=== PATIENT | male | born 1980 | race Caucasian/White ===

== ENCOUNTER 2019-10-03 22:18 | Emergency (ER) | payer SELFPAY ==
[~2019-10-03] VITALS: Ht 182.9 cm; Wt 100.0 kg
[~2019-10-03 22:18] MED LIST: ALLERGY EYE D0.025 % OP; TYLENOL325 MG OR
[2019-10-03 23:38] LABS: HEMATOCRIT 38.5 % (39.0-50.0); IMMATURE GRANULOCYTES 0.3 % (0.0-5.0); MEAN CELL VOLUME 92.3 fL CALC (80.0-100.0); MEAN CORPUSCULAR HGB 30.9 pG CALC (26.0-32.0); MEAN CORPUSCULAR HGB CONC 33.5 g/L CALC (32.0-36.0); NEUT# 8.62 thou/uL (1.82-7.42); RED BLOOD COUNT 4.17 mill/uL (4.70-6.10); RED CELL DISTRI WIDTH 12.2 % (11.5-15.5)
[2019-10-03 23:39] LABS: HEMOGLOBIN 12.9 g/dl (14.0-18.0)
[2019-10-03 23:57] LABS: ANION GAP 11 (6-22 (CALC)); BUN 17 mg/dL (9-20); BUN/CREATININE RATIO 20 (12-20 (CALC)); CARBON DIOXIDE 29 mmol/l (22-30); CHLORIDE 100 mmol/l (95-108); CREATININE 0.9 mg/dL (0.7-1.3); GFR > 60 ML/MIN (>=60 (CALC)); GFR FOR AFR.AMER. > 60 ML/MIN (>=60 (CALC)); SODIUM 137 mmol/l (137-146)
[2019-10-04] LABS: POTASSIUM 3.4 mmol/l (3.5-5.1)
[2019-10-04 01:40] VITALS: BP 134/74
== END 2019-10-04 01:40 | DRG 603 ==
LOC: ED 22:18
PROVIDERS: Emergency Medicine
DX: L02.512 Cutaneous abscess of left hand (principal); M65.842 Other synovitis and tenosynovitis, left hand

== ENCOUNTER 2022-10-11 20:01 | Emergency (ER) | payer OTHER ==
[2022-10-11] VITALS (10 sets, daily range): BP systolic 94–122; BP diastolic 58–92
[~2022-10-11] VITALS: Ht 182.9 cm; Wt 95.6 kg
[2022-10-11 22:16] LABS: HEMATOCRIT 41.9 % (39.0-50.0); HEMOGLOBIN 14.6 g/dl (14.0-18.0); IMMATURE GRANULOCYTES 0.5 % (0.0-5.0); MEAN CELL VOLUME 87.5 fL CALC (80.0-100.0); MEAN CORPUSCULAR HGB 30.5 pG CALC (26.0-32.0); MEAN CORPUSCULAR HGB CONC 34.8 g/dL CAL (32.0-36.0); NEUT# 14.91 thou/uL (1.82-7.42); RED BLOOD COUNT 4.79 mill/uL (4.70-6.10); RED CELL DISTRI WIDTH 12.9 % (11.5-15.5)
[2022-10-11 22:25] LABS: ALBUMIN 4.2 g/dL (3.2-5.0); ANION GAP 19 (6-22 (CALC)); BUN 19 mg/dL (9-20); BUN/CREATININE RATIO 18 (12-20 (CALC)); CARBON DIOXIDE 24 mmol/l (22-30); CHLORIDE 95 mmol/l (95-108); CREATININE 1.1 mg/dL (0.7-1.3); GFR FOR AFR.AMER. > 60 ML/MIN (>=60 (CALC)); GFR OTHER RACES > 60 ML/MIN (>=60 (CALC)); LIPASE 36 u/l (23-300); POTASSIUM 3.9 mmol/l (3.5-5.1); SGOT/AST 29 u/l (17-59); SODIUM 133 mmol/l (137-146); TOTAL PROTEIN 7.9 g/dL (6.3-8.2)
[2022-10-11 22:26] LABS: ALKALINE PHOSPHATASE 152 u/l (38-126); BILIRUBIN, TOTAL 0.6 mg/dL (0.0-1.4)
[2022-10-11 23:08] LABS: URINE BLOOD DIPSTICK LARGE (NEGATIVE); URINE COLOR YELLOW; URINE GLUCOSE - DIPSTICK NEGATIVE (NEGATIVE); URINE KETONE 40 mg/dL (NEGATIVE); URINE PROTEIN - DIPSTICK >=300 mg/dL (NEG-TRACE); URINE SPECIFIC GRAVITY 1.025
[2022-10-11 23:11] LABS: URINE BILIRUBIN - DIPSTICK MODERATE (NEGATIVE); URINE LEUK ESTERASE MODERATE (NEGATIVE); URINE NITRITE - DIPSTICK NEGATIVE (Negative)
[2022-10-11 23:31] LABS: URINE BACTERIA MANY hpf; URINE SQUAMOUS EPITHELIAL CELL FEW EPI/hpf (0-FEW); URINE WBC 50-100 WBC/hpf (0-5)
[2022-10-11] MEDS ORDERED: DICYCLOMINE10 MG PO (23:44)
[2022-10-11] MEDS ORDERED: CIPROFLOXACN500 MG PO (23:44)
[2022-10-12 00:30] VITALS: BP 103/69
[2022-10-12 00:45] VITALS: BP 114/85
[2022-10-12 01:00] VITALS: BP 100/69
[2022-10-12 01:36] VITALS: BP 100/69
== END 2022-10-12 01:36 | disposition home or self-care (01) | DRG 690 ==
LOC: ED 20:01
PROVIDERS: Family Medicine
DX: N39.0 Urinary tract infection, site not specified (principal); R10.9 Unspecified abdominal pain

== ENCOUNTER 2022-11-12 14:48 | Emergency (ER) | payer SELFPAY ==
[~2022-11-12] VITALS: Ht 182.9 cm; Wt 104.0 kg
[2022-11-12] VITALS (12 sets, daily range): BP systolic 99–116; BP diastolic 65–73
[~2022-11-12 14:48] MED LIST changes: +CIPROFLOXACN500 MG PO; +DICYCLOMINE10 MG PO
[2022-11-12] MEDS ORDERED: CIPROFLOXACN500 MG PO (19:02)
== END 2022-11-12 19:13 | disposition home or self-care (01) | DRG 728 ==
LOC: ED 14:48
DX: N45.1 Epididymitis (principal)

== ENCOUNTER 2023-04-23 16:37 | Observation (INO) | payer SELFPAY ==
[2023-04-23] VITALS (14 sets, daily range): BP systolic 105–131; BP diastolic 65–85
[~2023-04-23] VITALS: Ht 182.9 cm; Wt 96.0 kg
[2023-04-23 17:08] LABS: GFR FOR AFR.AMER. > 60 ML/MIN (>=60 (CALC)); GFR OTHER RACES > 60 ML/MIN (>=60 (CALC))
[2023-04-23 17:10] LABS: BASO% 0.5 % (0-3); EOS% 0.9 % (0-8); HEMATOCRIT 44.4 % (39.0-50.0); HEMOGLOBIN 14.9 g/dl (14.0-18.0); IMMATURE GRANULOCYTES 0.5 % (0.0-5.0); LYMPH% 13.8 % (15-41); MEAN CELL VOLUME 88.6 fL CALC (80.0-100.0); MEAN CORPUSCULAR HGB 29.7 pG CALC (26.0-32.0); MEAN CORPUSCULAR HGB CONC 33.6 g/dL CAL (32.0-36.0); MONO% 4.2 % (2-13); NEUT# 12.34 thou/uL (1.82-7.42); NEUT% 80.1 % (42-76); RED BLOOD COUNT 5.01 mill/uL (4.70-6.10); RED CELL DISTRI WIDTH 12.5 % (11.5-15.5)
[2023-04-23 17:38] LABS: ALBUMIN 4.5 g/dL (3.2-5.0); ALKALINE PHOSPHATASE 130 u/l (38-126); ANION GAP 18 (6-22 (CALC)); BILIRUBIN, TOTAL 0.5 mg/dL (0.2-1.3); BUN 16 mg/dL (9-20); BUN/CREATININE RATIO 20 (12-20 (CALC)); CARBON DIOXIDE 24 mmol/l (22-30); CHLORIDE 101 mmol/l (95-108); CREATININE 0.8 mg/dL (0.7-1.3); GFR FOR AFR.AMER. > 60 ML/MIN (>=60 (CALC)); GFR OTHER RACES > 60 ML/MIN (>=60 (CALC)); POTASSIUM 5.1 mmol/l (3.5-5.1); SGOT/AST 54 u/l (17-59); SODIUM 138 mmol/l (137-146); TOTAL PROTEIN 7.9 g/dL (6.3-8.2)
[2023-04-24] VITALS (21 sets, daily range): BP systolic 91–131; BP diastolic 51–83
[2023-04-24 05:42] LABS: BASO% 0.4 % (0-3); EOS% 2.4 % (0-8); HEMATOCRIT 39.2 % (39.0-50.0); IMMATURE GRANULOCYTES 0.7 % (0.0-5.0); LYMPH% 24.2 % (15-41); MEAN CELL VOLUME 89.7 fL CALC (80.0-100.0); MEAN CORPUSCULAR HGB 29.3 pG CALC (26.0-32.0); MEAN CORPUSCULAR HGB CONC 32.7 g/dL CAL (32.0-36.0); MONO% 5.3 % (2-13); NEUT# 6.42 thou/uL (1.82-7.42); RED BLOOD COUNT 4.37 mill/uL (4.70-6.10); RED CELL DISTRI WIDTH 12.5 % (11.5-15.5)
[2023-04-24 05:46] LABS: HEMOGLOBIN 12.8 g/dl (14.0-18.0)
[2023-04-24 05:59] LABS: ALKALINE PHOSPHATASE 103 u/l (38-126); ANION GAP 14 (6-22 (CALC)); BUN 15 mg/dL (9-20); BUN/CREATININE RATIO 18 (12-20 (CALC)); CARBON DIOXIDE 23 mmol/l (22-30); CHLORIDE 106 mmol/l (95-108); CREATININE 0.8 mg/dL (0.7-1.3); GFR FOR AFR.AMER. > 60 ML/MIN (>=60 (CALC)); GFR OTHER RACES > 60 ML/MIN (>=60 (CALC)); POTASSIUM 4.9 mmol/l (3.5-5.1); SGOT/AST 43 u/l (17-59); SODIUM 138 mmol/l (137-146); TOTAL PROTEIN 6.6 g/dL (6.3-8.2)
[2023-04-24 06:04] LABS: ALBUMIN 3.4 g/dL (3.2-5.0); BILIRUBIN, TOTAL 0.2 mg/dL (0.2-1.3)
[2023-04-25] VITALS: BP 111/69
[2023-04-25 02:00] VITALS: BP 101/63
[2023-04-25 04:01] VITALS: BP 131/87
[2023-04-25 06:00] VITALS: BP 108/71
[2023-04-25 06:13] LABS: BASO% 0.7 % (0-3); EOS% 3.9 % (0-8); HEMATOCRIT 39.2 % (39.0-50.0); HEMOGLOBIN 12.6 g/dl (14.0-18.0); IMMATURE GRANULOCYTES 1.4 % (0.0-5.0); LYMPH% 32.9 % (15-41); MEAN CORPUSCULAR HGB 29.2 pG CALC (26.0-32.0); MEAN CORPUSCULAR HGB CONC 32.1 g/dL CAL (32.0-36.0); MONO% 5.2 % (2-13); NEUT# 5.03 thou/uL (1.82-7.42); NEUT% 55.9 % (42-76); RED BLOOD COUNT 4.31 mill/uL (4.70-6.10); RED CELL DISTRI WIDTH 12.6 % (11.5-15.5)
[2023-04-25 08:00] VITALS: BP 108/75
[2023-04-25] MEDS ORDERED: AMOX/K CLAV875 M1 PO (11:09)
== END 2023-04-25 12:20 | disposition home or self-care (01) | DRG 603 ==
LOC: ED 16:37 → ICU 18:17
PROVIDERS: Family Medicine; ADMIT Surgery; ATTEND Surgery
DX: L03.113 Cellulitis of right upper limb (principal); B95.7 Other staphylococcus as the cause of diseases classified elsewhere; S61.511A Laceration without foreign body of right wrist, initial encounter; F17.200 Nicotine dependence, unspecified, uncomplicated; W22.8XXA Striking against or struck by other objects, initial encounter; Y93.H9 Activity, other involving exterior property and land maintenance, building and construction; Y92.007 Garden or yard of unspecified non-institutional (private) residence as the place of occurrence of the external cause
CPT/HCPCS: Q9967